=== PATIENT | female | born 1985 | race American Indian/Alaskan Native ===

== ENCOUNTER 2023-09-16 17:10 | Emergency (ER) | payer BC, MEDICAID, OTHER ==
[2023-09-16] MEDS ORDERED: cefTRIAXone 1 GM Vial IVPUSH ONE (17:44)
[2023-09-16] MEDS ORDERED: Dexamethasone 4 MG/ML SDV IM ONE (17:44)
[2023-09-16] MEDS ORDERED: cefTRIAXone 1 GM, Lidocaine 1% 2.1 ML IM ONE ×2 (17:58)
== END 2023-09-16 18:18 | disposition home or self-care (01) ==
LOC: DL.ED 17:10
DX: J01.00 Acute maxillary sinusitis, unspecified (principal)
CPT/HCPCS: 96372; 99282; 99283; J0696; J1100; J3490